=== PATIENT | female | born 1960 | race African-American/Black ===

== ENCOUNTER 2022-07-27 16:35 | Emergency (ER) | payer MEDICARE, OTHER ==
[~2022-07-27] VITALS: Ht 170.2 cm; Wt 77.0 kg
[~2022-07-27 16:35] MED LIST: HYDR12.529 PO
[2022-07-28] MEDS ORDERED: TOPUD MT (00:52)
[2022-07-28] MEDS ORDERED: HYDR12.54 MT (00:52)
[2022-07-28 01:03] VITALS: BP 125/78
== END 2022-07-28 01:00 | disposition home or self-care (01) ==
LOC: ER 16:35
DX: R51.9 Headache, unspecified (principal); H11.31 Conjunctival hemorrhage, right eye; J45.909 Unspecified asthma, uncomplicated; I10 Essential (primary) hypertension
CPT/HCPCS: 81025; 93005; 99283